=== PATIENT | male | born 1970 | race Caucasian/White ===

== ENCOUNTER 2019-04-26 07:57 | Day surgery (SDC) | payer OTHER ==
[~2019-04-26] VITALS: Ht 167.6 cm; Wt 76.2 kg
[2019-04-26 09:16] VITALS: BP 133/87
[2019-04-26 13:59] VITALS: BP 135/94
== END 2019-04-26 12:30 | disposition home or self-care (01) ==
LOC: GI 07:57 → OR 10:30 → GI 12:30
DX: K62.89 Other specified diseases of anus and rectum (principal); K63.89 Other specified diseases of intestine; K64.8 Other hemorrhoids; H33.8 Other retinal detachments; Z79.899 Other long term (current) drug therapy
CPT/HCPCS: 45378; J1200; J1610; J2250; J2310; J3010; J3490